=== PATIENT | female | born 1960 | race African-American/Black ===

== ENCOUNTER 2022-08-26 10:23 | Day surgery (SDC) | payer OTHER ==
[2022-08-25 12:35] VITALS: BMI 34.4
[~2022-08-26 10:23] MED LIST: EPINEPHrine 0.3 MG in Ophthalmic Irrigation Solution 500 ML IRR SCH; Midazolam HCl 2 mg/2 ml Vial ONE; PROPOFOL 20 ML ONE; fentaNYL PF 100 MCG/2 ML SYRINGE ONE
[2022-08-26] MEDS ORDERED: Phenylephrine 2.5% Ophth Soln 5 ML BOT ONE (10:39)
[2022-08-26] MEDS ORDERED: Cyclopentolate 1% Opth Drop 2 ML BOT ONE (10:39)
[2022-08-26] MEDS ORDERED: Bupivacaine 0.75% 10 ML VIAL ONE (12:22)
[2022-08-26] MEDS ORDERED: Maxitrol 0.1% Opth Oint 3.5 GM TUBE ONE (12:22)
[2022-08-26] MEDS ORDERED: Triamcinolone 40 MG/ML VIAL ONE (12:22)
[2022-08-26] MEDS ORDERED: Lidocaine 4% PF 5 ML AMP ONE (12:22)
[2022-08-26] MEDS ORDERED: CEFAZOLIN 1 GM VIAL ONE (12:22)
[2022-08-26] MEDS ORDERED: Lidocaine 1% PF 5 ML VIAL ONE (12:22)
== END 2022-08-26 14:00 | disposition home or self-care (01) ==
LOC: SDC 10:23
PROVIDERS: ATTEND Ophthalmology Retina Specialist
DX: H33.42 Traction detachment of retina, left eye (principal); I10 Essential (primary) hypertension; E78.5 Hyperlipidemia, unspecified; E11.9 Type 2 diabetes mellitus without complications; E66.9 Obesity, unspecified; Z68.34 Body mass index [BMI] 34.0-34.9, adult; Z86.16 Personal history of COVID-19; Z79.4 Long term (current) use of insulin; Z79.84 Long term (current) use of oral hypoglycemic drugs; Z79.899 Other long term (current) drug therapy
CPT/HCPCS: 36416; C1814; J0171; J2250; J2704